=== PATIENT | female | born 1950 | race Caucasian/White ===

== ENCOUNTER 2018-06-22 22:39 | Emergency (ER) | payer OTHER ==
[~2018-06-22] VITALS: Ht 167.6 cm; Wt 72.6 kg
[~2018-06-22 22:39] MED LIST: CIPRO500 MG PO; FLAGYL500MG PO
[2018-06-23] MEDS ORDERED: ZYNCOF 20-400120 ML PO (03:40)
[2018-06-23] MEDS ORDERED: ALBUTEROL2.5 MG/3 M IH (03:40)
[2018-06-23] MEDS ORDERED: PROAIR HFA8.5 GM IH (03:40)
== END 2018-06-23 04:10 ==
LOC: ER 22:39
DX: J45.901 Unspecified asthma with (acute) exacerbation (principal)

== ENCOUNTER 2023-09-03 17:16 | Inpatient (IN) | payer OTHER ==
[~2023-09-03] VITALS: Ht 167.6 cm; Wt 74.8 kg
[~2023-09-03 17:16] MED LIST changes: +ALBUTEROL2.5 MG/3 M IH; +PROAIR HFA8.5 GM IH; +ZYNCOF 20-400120 ML PO
[2023-09-03] MEDS ORDERED: SIMVASTATIN5 MG PO (17:29)
[2023-09-03] MEDS ORDERED: COZAAR25 MG PO (17:30)
[2023-09-03] MEDS ORDERED: METOCLOPRAMIDE HCL 5 MG/ML VIAL IM STA (18:16)
[2023-09-03] MEDS ORDERED: MECLIZINE HCL 25 MG TABLET PO STA (18:17)
[2023-09-03 18:58] LABS: HEMATOCRIT 40.1 % (36.0-45.00); MEAN CELL VOLUME 95.7 fL (80.00-100.00); MEAN CORPUSCULAR HEMOGLOBIN 33.4 pg (27.00-32.0); MEAN CORPUSCULAR HGB CONC 34.9 g/dl (32.0-36.0); PLATELET COUNT 191 K/uL (150-450); RED BLOOD COUNT 4.19 M/uL (4.00-6.00); RED CELL DISTRIBUTION WIDTH 13.5 % (11.5-14.5)
[2023-09-03 19:14] LABS: CALCIUM 9.6 mg/dL (8.5-10.1); CREATININE SERUM 1.07 mg/dL (0.55-1.02); GFR 50.69; POTASSIUM 3.65 mEq/L (3.5-5.1)
[2023-09-03] MEDS ORDERED: FAMOTIDINE/PF 20 MG/2 ML VIAL IV SCH (21:49)
[2023-09-03] MEDS ORDERED: ASPIRIN 81 MG TABLET.EC PO SCH (21:50)
[2023-09-03] MEDS ORDERED: ENALAPRILAT DIHYDRATE 1.25 MG/ML VIAL IV PRN (22:00)
[2023-09-03] MEDS ORDERED: METHYLPREDNISOLONE SOD SUCC 40 MG VIAL IV SCH (22:12)
[2023-09-04 02:00] LABS: POTASSIUM 3.47 mEq/L (3.5-5.1)
[2023-09-04 02:08] LABS: ALBUMIN 3.9 gm/dL (3.4-5.0); BILIRUBIN TOTAL 0.29 mg/dL (0.3-1.2); CALCIUM 9.2 mg/dL (8.5-10.1); CKMB 1.5 NG/ML (0.5-3.6); CREATININE SERUM 1.06 mg/dL (0.55-1.02); GFR 51.25; GLOBULINA 3.9 G/DL (2.4-3.5); TOTAL PROTEIN 7.8 gm/dL (6.4-8.2)
[2023-09-04 02:48] LABS: INR 0.97; PARTIAL THROMBOPLASTIN TIME 26.9 SECONDS (22.0-34.0); PROTHROMBIN TIME 10.2 SECONDS (9.0-11.5)
[2023-09-04] MEDS ORDERED: ATORVASTATIN CALCIUM 40 MG TABLET PO SCH (09:00)
[2023-09-04] MEDS ORDERED: levoFLOXacin IN DEXTROSE 5 % 5 MG/ML PIGGYBAG IV SCH (14:00)
[2023-09-04 14:26] LABS: ABG PH 7.431 (7.35-7.45); ABG PO2 110.1 mmHg (80-100); ABG pCO2 33.9 mmHg (35-45); BASE EXCESS -1.4 mmol/l; SaO2 98.4 %
[2023-09-04 14:27] LABS: BICARBONATE 22.1 mmol/l (23-25); Tco2 23.1 mmol/l; allen test SATISFACTORY; o2 21 %; puncture site RADIAL RIGHT
[2023-09-04] MEDS ORDERED: IPRATROPIUM/ALBUTEROL SULFATE 3 ML AMPUL.NEB IH SCH (18:00)
[2023-09-04] MEDS ORDERED: METHYLPREDNISOLONE SOD SUCC 40 MG VIAL IV SCH (21:00)
[2023-09-04] MEDS ORDERED: ENOXAPARIN SODIUM 40 MG/0.4 ML SYRINGE SUBCUTANEO SCH (21:00)
[2023-09-05 06:11] LABS: HEMATOCRIT 39.5 % (36.0-45.00); HEMOGLOBIN 13.5 g/dL (12.0-15.00); MEAN CELL VOLUME 96.6 fL (80.00-100.00); MEAN CORPUSCULAR HGB CONC 34.1 g/dl (32.0-36.0); PLATELET COUNT 199 K/uL (150-450); RED BLOOD COUNT 4.08 M/uL (4.00-6.00); RED CELL DISTRIBUTION WIDTH 13.7 % (11.5-14.5)
[2023-09-05 07:02] LABS: FERRITIN 147.8 NG/ML (8-252)
[2023-09-05 07:03] LABS: ALBUMIN 3.9 gm/dL (3.4-5.0); ALKALINE PHOSPHATASE 105 U/L (50-136); ALT/SGPT 20 U/L (12-78); ANION GAP 11 (10.0-20.0); AST/SGOT 20 U/L (15-37); BILIRUBIN TOTAL 0.33 mg/dL (0.3-1.2); BLOOD UREA NITROGEN 23 mg/dL (7-18); BUN CREA RATIO 23 (7.0-25.0); CALCIUM 9.1 mg/dL (8.5-10.1); CARBON DIOXIDE 24 mEq/L (21-32); CHLORIDE 109 mmol/L (98-107); GFR 54.81; GLOBULINA 3.8 G/DL (2.4-3.5); GLUCOSE FASTING 153 mg/dL (65-100); LDH 198 U/L (84-246); OSMOLALITY SERUM 286 MOSM/KG (275-295); POTASSIUM 3.84 mEq/L (3.5-5.1); SODIUM 140 mmol/L (136-145); TOTAL PROTEIN 7.7 gm/dL (6.4-8.2)
[2023-09-05 07:05] LABS: C-REACTIVE PROTEIN < 0.29 MG/DL (0.00-0.29)
[2023-09-05] MEDS ORDERED: levoFLOXacin IN DEXTROSE 5 % 5 MG/ML PIGGYBAG IV SCH (17:00)
[2023-09-06 05:33] LABS: HEMATOCRIT 40.9 % (36.0-45.00); HEMOGLOBIN 14.1 g/dL (12.0-15.00); MEAN CELL VOLUME 96.5 fL (80.00-100.00); MEAN CORPUSCULAR HEMOGLOBIN 33.2 pg (27.00-32.0); MEAN CORPUSCULAR HGB CONC 34.4 g/dl (32.0-36.0); PLATELET COUNT 185 K/uL (150-450); RED BLOOD COUNT 4.24 M/uL (4.00-6.00); RED CELL DISTRIBUTION WIDTH 13.3 % (11.5-14.5)
[2023-09-06 05:54] LABS: ALBUMIN 3.8 gm/dL (3.4-5.0); BILIRUBIN TOTAL 0.46 mg/dL (0.3-1.2); CALCIUM 9.2 mg/dL (8.5-10.1); CREATININE SERUM 1.06 mg/dL (0.55-1.02); GFR 51.25; GLOBULINA 3.8 G/DL (2.4-3.5); POTASSIUM 3.5 mEq/L (3.5-5.1); TOTAL PROTEIN 7.6 gm/dL (6.4-8.2)
== END 2023-09-06 16:28 | disposition home or self-care (01) | DRG 177 ==
LOC: ER 17:16 → MEDJ 22:11
PROVIDERS: Internal Medicine Critical Care Medicine; Internal Medicine Infectious Disease; ADMIT Internal Medicine; ATTEND Internal Medicine
PROC: BW28ZZZ Computerized Tomography (CT Scan) of Head (ICD-10-PCS; principal; 2023-09-03)
PROC: B345ZZZ Ultrasonography of Bilateral Common Carotid Arteries (ICD-10-PCS; 2023-09-04)
PROC: 4A12X4Z Monitoring of Cardiac Electrical Activity, External Approach (ICD-10-PCS; 2023-09-04)
PROC: B030ZZZ Magnetic Resonance Imaging (MRI) of Brain (ICD-10-PCS; 2023-09-05)
DX: U07.1 COVID-19 (principal); I63.531 Cerebral infarction due to unspecified occlusion or stenosis of right posterior cerebral artery; J44.1 Chronic obstructive pulmonary disease with (acute) exacerbation; J45.41 Moderate persistent asthma with (acute) exacerbation
CPT/HCPCS: 70544